=== PATIENT | female | born 2000 | race Caucasian/White ===

== ENCOUNTER → 2020-10-28 | Outpatient (CLI) | payer BC, OTHER ==
--- NOTE | 2020-10-28 20:02 | REP ---
INDICATION: EVALUATE PLACENTA,PREVIOUSLY LOW LYING. COMPARISON: None. TECHNIQUE: Multiple sonographic images of the gravid uterus to evaluate for low-lying placenta, limited study. FINDINGS: There are no comparison studies available. There is a single intrauterine gestation in a cephalic presentation. By today's measurements gestational age is 35 weeks 3 days with an RICARDO of 11/29/2020. weight is 2609 g/5 lb, 12 oz. This is the 22nd percentile for 36 weeks 3 days. The placenta is posterior with grade 2 maturity. The distance from the inferior tip of the placenta to the internal cervical os is 3.0 cm. There is no placenta previa. The umbilical cord inserts centrally onto the placenta. There is a three-vessel cord. Amniotic fluid index is 13.3. Normal 7.6-24.7. Subjectively the amniotic fluid volume is normal. Cervix measures 3.5 cm length. IMPRESSION: There is no placenta previa. The inferior tip of the placenta is 3 cm above the internal cervical os. Other findings are as described above. There is no comparison study available. <Electronically signed by Bryan Morrison > 10/28/201957
== END ==
LOC: M WHC 13:32
PROVIDERS: ATTEND Advanced Practice Midwife
DX: Z34.03 Encounter for supervision of normal first pregnancy, third trimester (principal)

== ENCOUNTER → 2020-10-31 | Outpatient (REF) | payer BC, OTHER ==
[2020-10-31 14:09] LABS: APPEARANCE, URINE CLOUDY (CLEAR); BACTERIA, URINE AUTO 1+ (NEGATIVE); BILIRUBIN, URINE AUTO NEGATIVE (NEGATIVE); BLOOD, URINE BLOOD NEGATIVE (NEGATIVE); COLOR, URINE YELLOW (YELLOW); GLUCOSE, URINE (UA) AUTO NEGATIVE (NEGATIVE); KETONE, URINE AUTO NEGATIVE (NEGATIVE); LEUKOCYTE ESTERASE, URINE AUTO 3+ (NEGATIVE); NITRITE, URINE AUTO NEGATIVE (NEGATIVE); PROTEIN, URINE AUTO NEGATIVE (NEGATIVE); RBC, URINE AUTO 2 /HPF (0-3); SPECIFIC GRAVITY URINE AUTO 1.014 (1.002-1.035); SQUAMOUS EPITHELIAL CELL UR AU 13 /HPF (0-6); UROBILINOGEN, URINE AUTO 0.2 mg/dL (0.0-2.0); WBC, URINE AUTO 9 /HPF (0-3)
== END ==
LOC: M SMT 13:23
PROVIDERS: ATTEND Nurse Practitioner Women's Health
DX: N39.0 Urinary tract infection, site not specified (principal)

== ENCOUNTER 2020-11-22 03:34 | Inpatient (IN) | payer BC, OTHER ==
[2020-11-22] VITALS (32 sets, daily range): BP systolic 98–151; BP diastolic 54–88
[~2020-11-22] VITALS: Ht 157.5 cm; Wt 103.2 kg
[2020-11-22 04:40] LABS: HEMOGLOBIN 14.6 g/dl (12.0-15.5); MEAN CORPUSCULAR HEMOGLOBIN 31.3 pg (27.0-33.0); MEAN CORPUSCULAR HGB CONC 34.8 g/dl (32.0-36.5); MEAN CORPUSCULAR VOLUME 90.1 fl (80.0-96.0); PLATELET COUNT, AUTOMATED 245 10^3/uL (150-450); RED BLOOD COUNT 4.66 10^6/uL (4.00-5.40); WHITE BLOOD COUNT 15.1 10^3/uL (4.0-10.0)
[2020-11-22] MEDS ORDERED: PROMETHAZINE INJ 25 MG/ML VIAL (J2550) IV ONE (05:05)
[2020-11-22] MEDS ORDERED: BUTORPHANOL 2 MG/ML INJ (J0595) IV ONE (05:05)
--- NOTE | 2020-11-22 08:27 | HPEPDOC ---
Obstetrical History & Physical General Date of Admission Nov 22, 2020 at 04:17 Primary Care Physician: KATIA ADAM CNM History of Present Illness Jasmin is a 19-year-old female who is a at 40 weeks with an RICARDO of 11/22/20 based off of her LMP and consistent with her first trimester ultrasound. She transferred care to [facility] in her third trimester of . Her has been uncomplicated. She presents to L&D with complaints of painful contractions that started at midnight. She reports active movement. She denies leaking of fluid or vaginal bleeding. Chief Complaint: Contractions, term, Active Labor Information Provided By: Patient Age: 19 : 1 Term: 0 Pre-term: 0 Abortions: 0 Livin Care Care: Good Care Dating Final EDC: Nov 22, 2020 Final EDC by: LMP EGA at Admission: 40 Antepartum Course Height (inches): 62 Admission Weight (lbs.): 226 Past Medical History Past Obstetrical History : Past Obstetrical History: Primgravida [employer] History: No pertinent history Past Medical History Surgical History: Other (multiple hip surgeries) Family History Significant Family History: Cancer, Lung disease, Other (hypothyroid) Social History Social history [facility] urology Marital Status: Single Family situation: Spouse/partner home Psychosocial History: No pertinent psych hx * Smoker: non-smoker Alcohol: Denies Drugs: denies Allergies Coded Allergies: Penicillins (Verified Allergy, Intermediate, 11/22/20) tramadol (Verified Allergy, Intermediate, 11/22/20) Physical Examination Physical Examination GENERAL: Alert and oriented times three. BREAST: . ABDOMEN: Gravid and non-tender to touch. FETUS: Is vertex (VTX) by sterile vaginal examination (SVE), fetus is vertex (VTX) by Tarun. LUNGS: Clear to auscultation (CTA). EXTREMITIES: No edema. No clonus. Deep tendon reflexes (DTRs) + 2. Vital Signs/I&O Vital Signs Date Time Temp Pulse Resp B/P (MAP) Pulse Ox O2 Delivery O2 Flow Rate FiO2 11/22/20 07:45 97.6 76 18 122/73 (89) 99 Room Air Laboratory Data 24H LABS Laboratory Tests 2 11/22/20 04:34: Nucleated Red Blood Cells % (auto) 0.0 CBC/BMP Laboratory Tests 11/22/20 04:34 Urine Culture: No Growth Pertinent Laboratoy Data Blood Type: O+ RBC Antibody Screen: Negative HIV: Negative Hepatitis B: Negative Hepatitis C: Negative Rapid Plasma Reagin: Nonreactive Rubella: Immune Chlamydia/Gonorrhea: Negative Group B Streptococcus: Negative Cystic Fibrosis: Negative Glucose Tolerance Test: 89 Vaginal Examination Dilation: 5 cm Effacement: 90% Station: -2 Cervical Consistency: Soft Cervical Position: Anterior Presentation: Cephalic presentation Position: Vertex (occiput) Assessment Heart Rate (FHR): 130 Variability: Moderate Accelerations: Positive Decelerations: None Tocometer Contractions: Yes Frequency: regular, every 3-7 min. Multi-drug resistant Organism: No history of MDRO Assessment/Plan Assessment IUP at 40 weeks gestation active labor Category I FHR tracing GBS negative. Plan Admit to L&D. OOB ad candi. Diet: clears. Group B Streptococcus (GBS) negative. Labs and intravenous (IV) per unit protocol. Requesting IV pain medication for labor pain. Anesthesia consult per patient's request. Lactated Ringers (LR): Bolus 800 mL prior to epidural, then at 125 mL/hr. Anticipate cervical change and . C-S as appropriate. KATIA ADAM CNM Nov 22, 2020 08:27
[2020-11-22 11:09] LABS: HIV 1&2 SCREEN CENTAUR NEGATIVE (NEGATIVE)
[2020-11-22] MEDS ORDERED: LR 1,000 ML IV ONE (13:25)
[2020-11-22] MEDS ORDERED: FENTANYL 2MCG/ML ROPIVACAINE 0.2% IN 0.9% NACL 100ML IVBAG As Ordered ONE (14:02)
[2020-11-22] MEDS: LR 1,000 ML IV SCH ×2 (14:15→18:24)
[2020-11-22] MEDS ORDERED: EPIDURAL/PCA KEYS XX PRN (14:25)
[2020-11-22] MEDS ORDERED: LACTATED RINGER'S 1000 ML IV PRN (14:25)
[2020-11-22] MEDS ORDERED: FENTANYL/ROPIVACAINE/NACL BAG 100 ML EPIDURAL SCH (14:25)
[2020-11-22] MEDS ORDERED: diphenhydrAMINE 50MG/ML VIAL (J1200) IV PRN (14:25)
[2020-11-22] MEDS ORDERED: REFRIGERATOR IV KEYS XX PRN (14:25)
[2020-11-22] MEDS ORDERED: ePHEDrine SULFATE 25 MG/5 ML(5MG/ML) SYRINGE IV PRN (14:25)
[2020-11-22] MEDS ORDERED: ONDANSETRON 4MG/2ML VIAL IV PRN (14:25)
[2020-11-22] MEDS ORDERED: EPIDURAL COMMENT XX SCH (14:25)
[2020-11-22] MEDS ORDERED: NALOXONE INJ 0.4MG/1ML VIAL (J2310 PER 1MG) IV PRN (14:25)
[2020-11-22] MEDS ORDERED: OXYTOCIN DRIP 30 UNITS in IV 1 EA IV SCH (15:15)
--- NOTE | 2020-11-22 15:15 | IPNPDOC ---
Obstetrical Progress Note Date of Service Nov 22, 2020 Subjective comfortable with epidural Objective Vital Signs Date Time Temp Pulse Resp B/P (MAP) Pulse Ox O2 Delivery O2 Flow Rate FiO2 11/22/20 14:41 98.1 96 18 117/67 (84) 11/22/20 07:45 99 Room Air Assessment Variability: Moderate Accelerations: Positive Decelerations: None Heart Rate Tracing: Category I Tocometer Contractions: Yes Frequency: regular Strength: palpated as moderate Sterile Vaginal Examination Dilation: 6 cm Effacement (%): 90% Station: -1 Cervical Consistency: Soft Cervical Position: Posterior Postion/Presentation: Cephalic presentation Assessment and Plan Additional Comments 19 yo G1 at 40 weeks admitted in labor AROM performed for clear fluid at 1512 May need to start Pitocin contractions not strong NILSON HENRY MD Nov 22, 2020 15:15
[2020-11-22] MEDS ORDERED: ACETAMINOPHEN TAB 650MG DOSE (2X325MG) PO PRN (19:50)
[2020-11-22] MEDS ORDERED: RHOGAM 300 MCG (1500 IU) INJ (J2790) IM SCH (19:50)
[2020-11-22] MEDS ORDERED: DOCUSATE SODIUM 100MG CAPSULE PO PRN (19:50)
[2020-11-22] MEDS ORDERED: IBUPROFEN 600MG TAB PO PRN (19:50)
[2020-11-22] MEDS ORDERED: MEASLES,MUMPS,RUBELLA VACCINE INJ (MMR-II) (90707) SC SCH (19:50)
[2020-11-22] MEDS ORDERED: ACETAMINOPHEN 500 MG TAB PO PRN (19:50)
[2020-11-22] MEDS ORDERED: DIBUCAINE 1% OINTMENT 30GM TOP PRN (19:50)
[2020-11-22] MEDS ORDERED: METHYLERGONOVINE MALEATE 0.2 MG TAB PO PRN (19:50)
[2020-11-22] MEDS ORDERED: OXYTOCIN DRIP 30 UNITS in IV 1 EA IV ONE (19:50)
--- NOTE | 2020-11-22 19:55 | DNPDOC ---
[facility] Delivery Note Delivery Note DATE OF DELIVERY: November 222020 PREDELIVERY DIAGNOSIS: 40-0/7 weeks' gestation and labor. POST DELIVERY DIAGNOSIS: Delivered. PROCEDURE: Spontaneous vaginal delivery. SHELLFISH WEIGHER: Dr. Nilson Henry MD ANESTHESIA: epidural. ESTIMATED BLOOD LOSS: 300 mL. FINDINGS: 7 pound 0 ounce female , Score 8/9, nuchal cord times one. DELIVERY SUMMARY: Patient is a 19-year-old 1 now para 1 who was admitted to labor and delivery for active labor. She had AROM along with Pitocin augmentation. After a 13 minute second stage of labor she had a spontaneous vaginal delivery of a 7# 0 oz. female infant. Tight nuchal cord clamped and cut on the perineum. Shoulders delivered with ease. handed to the mother. Cord clamped and cut. Placenta delivered spontaneously and appeared intact. Pt received IV Pitocin immediately after delivery of the placenta. A first degree vaginal laceration was repaired with 2-O Chromic in the usual fashion. Sponge and needle counts correct.. NILSON HENRY MD Nov 22, 2020 19:55
[2020-11-23 06:00] VITALS: BP 112/54
[2020-11-23] MEDS: PRENATAL VITAMINS CHEWABLE TABLET PO SCH (08:28)
[2020-11-23] MEDS: IBUPROFEN 800 MG TAB PO PRN ×2 (08:28→22:56)
[2020-11-23 18:00] VITALS: BP 122/56
[2020-11-24 06:00] VITALS: BP 126/74
[2020-11-24] MEDS: PRENATAL VITAMINS CHEWABLE TABLET PO SCH (08:34)
== END 2020-11-24 11:55 | disposition home or self-care (01) | DRG 560 ==
LOC: M LDO 03:34 → M LDI 04:17 → EEVIPCON 04:17 → M OBS 21:08
PROVIDERS: ADMIT Advanced Practice Midwife; ATTEND Specialist
PROC: 10E0XZZ Delivery of Products of Conception, External Approach (ICD-10-PCS; principal; 2020-11-22)
PROC: 0HQ9XZZ Repair Perineum Skin, External Approach (ICD-10-PCS; 2020-11-22)
PROC: 10907ZC Drainage of Amniotic Fluid, Therapeutic from Products of Conception, Via Natural or Artificial Opening (ICD-10-PCS; 2020-11-22)
DX: O69.1XX0 Labor and delivery complicated by cord around neck, with compression, not applicable or unspecified (principal); Z3A.40 40 weeks gestation of pregnancy; O70.0 First degree perineal laceration during delivery; Z37.0 Single live birth

== ENCOUNTER → 2021-03-31 | Outpatient (REF) | LOC: M LABSMTC 13:33 | PROVIDERS: ATTEND Pediatrics | DX: Z11.52 Encounter for screening for COVID-19 (principal) ==

== ENCOUNTER → 2021-04-06 | Outpatient (REF) | LOC: M LABSMTC 11:33 | PROVIDERS: ATTEND Pediatrics | DX: Z20.822 Contact with and (suspected) exposure to COVID-19 (principal) ==

== ENCOUNTER → 2021-06-09 | Outpatient (REF) | payer BC, OTHER | LOC: M SFHCPLAZ 10:00 | PROVIDERS: ATTEND Family Medicine | DX: Z53.9 Procedure and treatment not carried out, unspecified reason (principal); Z13.1 Encounter for screening for diabetes mellitus; L70.0 Acne vulgaris; Z13.220 Encounter for screening for lipoid disorders; R63.5 Abnormal weight gain ==

== ENCOUNTER → 2021-08-02 | Outpatient (REF) | LOC: M LABSMTC 12:48 | PROVIDERS: ATTEND Family Medicine | DX: Z11.52 Encounter for screening for COVID-19 (principal); Z20.822 Contact with and (suspected) exposure to COVID-19 ==

== ENCOUNTER → 2021-08-07 | Outpatient (REF) | LOC: M LABSMTC 12:08 | PROVIDERS: ATTEND Family Medicine | DX: Z11.52 Encounter for screening for COVID-19 (principal); Z20.822 Contact with and (suspected) exposure to COVID-19 ==

== ENCOUNTER → 2023-02-25 | Outpatient (CLI) | payer OTHER, BC | LOC: M WHC 10:58 | PROVIDERS: ATTEND Advanced Practice Midwife | DX: O20.9 Hemorrhage in early pregnancy, unspecified (principal); O36.4XX0 Maternal care for intrauterine death, not applicable or unspecified; Z3A.11 11 weeks gestation of pregnancy ==

== ENCOUNTER → 2024-05-04 | Outpatient (CLI) | payer OTHER ==
[2024-05-04 15:11] LABS: FREE T4 1.2 NG/DL (0.89-1.76); THYROID STIMULATING HORMONE 2.199 uIU/ML (0.55-4.78)
[2024-05-04 15:12] LABS: FOLLICLE STIMULATING HORMONE 3.4 mIU/ML; LUTEINIZING HORMONE 10.2 mIU/ML; PROLACTIN 12.47 NG/ML
[2024-05-04 15:13] LABS: PROGESTERONE 9.27 NG/ML
== END ==
LOC: M PLALAB 12:13
PROVIDERS: ATTEND Specialist
DX: N92.6 Irregular menstruation, unspecified (principal)

== ENCOUNTER → 2024-06-15 | Outpatient (CLI) | payer BC | LOC: M PLALAB 12:32 | PROVIDERS: ATTEND Specialist | DX: N91.2 Amenorrhea, unspecified (principal) ==

== ENCOUNTER → 2024-06-17 | Outpatient (CLI) | payer BC | LOC: M PLALAB 12:26 | PROVIDERS: ATTEND Specialist | DX: N91.2 Amenorrhea, unspecified (principal) ==

== ENCOUNTER → 2024-07-29 | Outpatient (REF) | payer BC, OTHER | LOC: M PLALAB 08:32 | PROVIDERS: ATTEND Specialist | DX: Z34.81 Encounter for supervision of other normal pregnancy, first trimester (principal) ==

== ENCOUNTER → 2024-08-18 | Outpatient (CLI) | payer BC, OTHER ==
[2024-08-18 16:30] LABS: HEMATOCRIT 40.6 % (36.0-47.0); HEMOGLOBIN 13.6 g/dl (12.0-15.5); MEAN CORPUSCULAR HGB CONC 33.5 g/dl (32.0-36.5); MEAN CORPUSCULAR VOLUME 92.5 fl (80.0-96.0); PLATELET COUNT, AUTOMATED 273 10^3/uL (150-450); RED BLOOD COUNT 4.39 10^6/uL (4.00-5.40); WHITE BLOOD COUNT 14.8 10^3/uL (4.0-10.0)
[2024-08-18 17:07] LABS: HIV 1&2 SCREEN NEGATIVE (NEGATIVE)
[2024-08-18 17:16] LABS: HEPATITIS C VIRUS ABY INDEX < 0.02 INDEX (<0.8)
[2024-08-18 18:14] LABS: GC DNA AMPLIFICATION NEGATIVE (NEGATIVE)
== END ==
LOC: M PLALAB 12:15
PROVIDERS: ATTEND Specialist
DX: Z34.81 Encounter for supervision of other normal pregnancy, first trimester (principal)

== ENCOUNTER → 2024-09-17 | Outpatient (CLI) | payer BC | LOC: M RAD 15:39 | PROVIDERS: ATTEND Obstetrics & Gynecology | DX: Z36.2 Encounter for other antenatal screening follow-up (principal); Z3A.18 18 weeks gestation of pregnancy ==

== ENCOUNTER → 2024-10-23 | Outpatient (CLI) | payer BC | LOC: M WHC 08:32 | PROVIDERS: ATTEND Obstetrics & Gynecology | DX: Z36.2 Encounter for other antenatal screening follow-up (principal) ==

== ENCOUNTER → 2024-11-05 | Outpatient (CLI) | payer BC ==
[2024-11-05 14:20] LABS: HEMATOCRIT 38.5 % (36.0-47.0); HEMOGLOBIN 12.9 g/dl (12.0-15.5); MEAN CORPUSCULAR HEMOGLOBIN 31.3 pg (27.0-33.0); MEAN CORPUSCULAR HGB CONC 33.5 g/dl (32.0-36.5); MEAN CORPUSCULAR VOLUME 93.4 fl (80.0-96.0); PLATELET COUNT, AUTOMATED 271 10^3/uL (150-450); RED BLOOD COUNT 4.12 10^6/uL (4.00-5.40); WHITE BLOOD COUNT 17.8 10^3/uL (4.0-10.0)
[2024-11-05 14:52] LABS: GLUCOSE CHALLENGE TEST 1 HOUR 66 MG/DL (LESS THAN 140)
[2024-11-05 15:27] LABS: HIV 1&2 SCREEN NEGATIVE (NEGATIVE)
[2024-11-05 15:35] LABS: HEPATITIS C VIRUS ABY INDEX 0.04 INDEX (<0.8)
[2024-11-05 15:47] LABS: Trichomonas vaginalis (AMP) NOT DETECTED (NEGATIVE)
[2024-11-05 16:12] LABS: GC DNA AMPLIFICATION NEGATIVE (NEGATIVE)
== END ==
LOC: M PLALAB 08:25
PROVIDERS: ATTEND Nurse Practitioner Family
DX: Z34.80 Encounter for supervision of other normal pregnancy, unspecified trimester (principal)

== ENCOUNTER → 2024-12-04 | Outpatient (CLI) | payer BC | LOC: M RAD 13:33 | PROVIDERS: ATTEND Advanced Practice Midwife | DX: Z34.83 Encounter for supervision of other normal pregnancy, third trimester (principal) ==

== ENCOUNTER → 2025-05-26 | Outpatient (REF) | payer BC ==
[2025-05-28 12:48] LABS: HPV APTIMA Not Detected (Not Detected)
== END ==
LOC: M PLALAB 09:15
PROVIDERS: ATTEND Obstetrics & Gynecology
DX: Z12.4 Encounter for screening for malignant neoplasm of cervix (principal)
CPT/HCPCS: 87624; G0123